=== PATIENT | female | born 1985 | race Caucasian/White ===

== ENCOUNTER 2022-06-22 17:29 | Emergency (ER) | payer MEDICAID ==
[~2022-06-22] VITALS: Ht 167.6 cm; Wt 65.0 kg
[2022-06-22 17:32] VITALS: BP 140/88
[2022-06-22] MEDS ORDERED: TRAMADOL 50MG TABLET PO ONE (18:30)
[2022-06-22] MEDS ORDERED: IBUPROFEN 600MG TABLET PO ONE (18:30)
[2022-06-22] MEDS ORDERED: METH-773 MT (20:03)
[2022-06-22] MEDS ORDERED: IBUP-2029 MT (20:03)
== END 2022-06-22 20:53 | disposition home or self-care (01) ==
LOC: ER 17:29
DX: S09.8XXA Other specified injuries of head, initial encounter (principal); S92.351A Displaced fracture of fifth metatarsal bone, right foot, initial encounter for closed fracture; S22.32XA Fracture of one rib, left side, initial encounter for closed fracture; M54.2 Cervicalgia; M25.552 Pain in left hip; M79.671 Pain in right foot; V49.3XXA Car occupant (driver) (passenger) injured in unspecified nontraffic accident, initial encounter; Y93.89 Activity, other specified; Y92.410 Unspecified street and highway as the place of occurrence of the external cause
CPT/HCPCS: 29515; 71045; 73502; 73630; 99284